=== PATIENT | female | born 1970 | race Caucasian/White ===

== ENCOUNTER 2018-07-15 00:03 | Emergency (ER) | payer OTHER, BC ==
[~2018-07-15] VITALS: Ht 152.4 cm; Wt 76.7 kg
[2018-07-15 00:04] VITALS: BP_SYST 150
[2018-07-15 00:39] VITALS: BP_SYST 146
== END 2018-07-15 00:39 ==
LOC: SED 00:03
DX: Z02.89 Encounter for other administrative examinations (principal); V43.52XA Car driver injured in collision with other type car in traffic accident, initial encounter; Y93.89 Activity, other specified; Y92.89 Other specified places as the place of occurrence of the external cause; Y99.8 Other external cause status
CPT/HCPCS: 99283